=== PATIENT | female | born 1950 | race Caucasian/White ===

== ENCOUNTER 2018-05-11 19:59 | Observation (INO) | payer OTHER ==
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
--- NOTE | 2018-05-11 20:18 | CPEKG ---
Heart Rate: 62 RR Interval: 968 P-R Interval: 180 QRSD Interval: 94 QT Interval: 420 QTC Interval: 427 P York: 65 QRS York: 47 T Wave York: 62 EKG Severity - NORMAL ECG - EKG Impression: SINUS RHYTHM Electronically Signed By: Manish Pittman 16-May-2018 16:38:28
[2018-05-11 20:23] LABS: PLATELET COUNT 317 10^3/uL (150-400)
[2018-05-11] MEDS ORDERED: IOPAMIDOL (ISOVUE 370) 100 ML BTL IV ONE (21:07)
[2018-05-11] MEDS ORDERED: NS 1,000 ML IV ONE (21:44)
[2018-05-11] MEDS ORDERED: ACETAMINOPHEN 325 MG TAB PO PRN (22:55)
[2018-05-11] MEDS ORDERED: HYDROCODONE/APAP 5/325 TAB PO PRN (22:55)
[2018-05-11] MEDS ORDERED: ONDANSETRON 4 MG/2 ML VIAL IVP PRN (22:55)
[2018-05-11] MEDS ORDERED: NS 1,000 ML IV SCH (23:00)
--- NOTE | 2018-05-12 01:58 | PDGENHP ---
History and Physical - Chief Complaint Chest pain, syncope - History of Present Illness Source-patient provides history is a reliable historian. Some of the history is obtained from review of EMR as patient did have some syncopal episodes as and does not recall these events. Case was discussed with accepting hospitalist provider. HPI-this is a very pleasant 67-year-old female who is otherwise healthy presents emergency department today with complaints of on a new onset of chest pain earlier in the day. Patient reports that she developed lot left-sided sharp stabbing intermittent chest pain that was worsened with sitting up and exertion. She had also noted some associated shortness of breath with exertion over the last several weeks since she has arrived [place] the [place] Patient is a resident in [place] and has been traveling for the last several weeks. She was in [place] on just 2 days ago and came to [place] to visit with friends. Today patient reports that she developed a left-sided chest pain she also noted that she had associated numbness and tingling down to her left arm to her fingers. She denies any weakness. Did developed some associated nausea but no vomiting. She denies any diaphoresis. Dyspnea on exertion as noted above. Patient is also noting that since she arrived to the [place] That she has developed some congestion and postnasal drainage. She also reports that when she lays down to sleep she feels like she is choking on drainage but has never had symptoms similar to this until arriving to the [place] This afternoon patient apparently had several episodes of syncope witnessed by her friends. When she went to sit up she subsequently lost consciousness for few seconds. She had multiple episodes similar to this. She denies any lower extremity edema, orthopnea or PND. Overall patient reports that she is very active and has never had any exertional chest pain or similar step symptoms previously. Patient states that she has been eating and drinking to stay well hydrated while she is here in [place]. She denies any fevers or chills. She reports development of a headache today on frontal and right-sided. She denies any associated changes in vision or ocular pain. No other focal deficits reported. No family history of coronary artery disease. History Information - Allergies/Home Medication List Allergies/Adverse Reactions: No Known Allergies Allergy (Verified 05/11/18 22:19) Home Medications: NK [No Known Home Meds] 05/11/18 [Last Taken Unknown] I have personally reviewed and updated: family history, medical history, social history, surgical history - Past Medical History no pertinent PMH Additional medical history: 2016 - closed-head injury with hospitalization. - Surgical History Additional surgical history: Appendectomy - Family History Additional family history: Negative for CAD. - Social History Smoking Status: Never smoked Alcohol Use: None Drug Use: None Additional social history: Patient is visiting from [place]. Cor status-full. Review of Systems Review of Systems: ROS: 10pt was reviewed & negative except for what was stated in HPI & below Constitutional: Reports: no symptoms. Denies: chills, fever EENMT: Reports: no symptoms. Denies: blurred vision, double vision, nose congestion, sore throat Cardiac: Reports: chest pain, lightheadedness, syncope. Denies: edema, palpitations Gastrointestinal: Reports: nausea. Denies: vomitting, diarrhea Genitourinary: Reports: no symptoms Muscolosketal: Reports: no symptoms Skin: Reports: no symptoms Neurological: Reports: headache, numbness (Left arm). Denies: tingling Hematologic/Lymphatic: Reports: no symptoms Physical Exam Physical Exam: Selected Entries 05/11/18 05/11/18 20:01 21:43 Blood Pressure Automatic Method Heart Rate 72 Heart Rate [ 61 Sitting] Heart Rate [ 67 Standing] Heart Rate [ 68 Supine] Respiratory 16 Rate O2 Sat (%) 96 Temperature (C) 36.4 C Blood Pressure 144/82 H Blood Pressure 122/69 H [Sitting] Blood Pressure 114/70 [Standing] Blood Pressure 115/71 [Supine] Mean Arterial 102 H Pressure (MAP) O2 Delivery Room Air Mode Blood Pressure Right Source [Sitting Arm ] Heart Rate/ Monitor Blood Pressure Right Source [ Arm Standing] Heart Rate/ Monitor Blood Pressure Right Source [Supine] Arm Heart Rate/ Monitor Temperature Oral Source Heart Rate Automatic Source [Sitting ] Heart Rate Heart Rate/ Source [ Monitor Standing] Heart Rate Heart Rate/ Source [Supine] Monitor Temp Pulse Resp BP Pulse Ox 36.6 C 71 16 131/55 H 97 05/11/18 22:50 05/11/18 22:50 05/11/18 22:50 05/11/18 22:50 05/11/18 22:50 Constitutional: no apparent distress, not in pain, other (NAD. Pleasant adult female is sitting up on the edge of the bed. She is in good spirits.) Eyes: PERRL, anicteric sclera, EOMI, No scleral injection Ears, Nose, Mouth, Throat: moist mucous membranes, no oral mucosal ulcers, other (No nasal discharge) Cardiovascular: regular rate and rhythym, no murmur, rub, or gallop, pulses symmetric bilaterally, No edema Peripheral Pulses: 2+: dorsalis-pedis (R), dorsalis-pedis (L) Respiratory: no respiratory distress, no rales or rhonchi, clear to auscultation , No inspiratory crackles, No respiratory distress Gastrointestinal: normoactive bowel sounds, soft, non-tender abdomen, no palpable masses, No distension Genitourinary: no bladder fullness, no bladder tenderness, No garcia in urethra Skin: warm, normal color, no rashes or abrasions Musculoskeletal: full muscle strength, normal joint ROM, No generalized weakness Neurologic: AAOx3, sensation intact bilaterally, CN II-XII Intact, other ( Nonfocal exam), No facial droop Psychiatric: interacting appropriately, not anxious, not encephalopathic, thought process linear Lymph, Heme, Immunologic: no cervical LAD, other (Patient with enlargement of the thyroid right greater than left lobes. Nodularity.) Lab Data & Imaging Review 05/11/18 20:00 05/11/18 20:00 WBC 8.77 10^3/uL (3.80-9.50) 05/11/18 20:00 RBC 4.65 10^6/uL (4.18-5.33) 05/11/18 20:00 Hgb 14.2 g/dL (12.6-16.3) 05/11/18 20:00 POC Hgb 14.6 gm/dL (12.6-16.3) 05/11/18 20:18 Hct 42.2 % (38.0-47.0) 05/11/18 20:00 POC Hct 43 % (38-47) 05/11/18 20:18 MCV 90.8 fL (81.5-99.8) 05/11/18 20:00 MCH 30.5 pg (27.9-34.1) 05/11/18 20:00 MCHC 33.6 g/dL (32.4-36.7) 05/11/18 20:00 RDW 13.3 % (11.5-15.2) 05/11/18 20:00 Plt Count 317 10^3/uL (150-400) 05/11/18 20:00 MPV 11.2 fL (8.7-11.7) 05/11/18 20:00 Neut % (Auto) 53.5 % (39.3-74.2) 05/11/18 20:00 Lymph % (Auto) 31.7 % (15.0-45.0) 05/11/18 20:00 [place] % (Auto) 9.5 % (4.5-13.0) 05/11/18 20:00 Eos % (Auto) 3.9 % (0.6-7.6) 05/11/18 20:00 Baso % (Auto) 1.1 % (0.3-1.7) 05/11/18 20:00 Nucleat RBC Rel Count 0.0 % (0.0-0.2) 05/11/18 20:00 Absolute Neuts (auto) 4.69 10^3/uL (1.70-6.50) 05/11/18 20:00 Absolute Lymphs (auto) 2.78 10^3/uL (1.00-3.00) 05/11/18 20:00 Absolute Monos (auto) 0.83 10^3/uL (0.30-0.80) H 05/11/18 20:00 Absolute Eos (auto) 0.34 10^3/uL (0.03-0.40) 05/11/18 20:00 Absolute Basos (auto) 0.10 10^3/uL (0.02-0.10) 05/11/18 20:00 Absolute Nucleated RBC 0.00 10^3/uL (0-0.01) 05/11/18 20:00 Immature Gran % 0.3 % (0.0-1.1) 05/11/18 20:00 Immature Gran # 0.03 10^3/uL (0.00-0.10) 05/11/18 20:00 D-Dimer 0.42 ug/mLFEU (0.00-0.50) 05/11/18 20:00 POC Sodium 142 mEq/L (135-145) 07/07/18 20:18 Sodium 139 mEq/L (135-145) 05/11/18 20:00 POC Potassium 3.8 mEq/L (3.3-5.0) 05/11/18 20:18 Potassium 4.1 mEq/L (3.3-5.0) 05/11/18 20:00 POC Chloride 104 mEq/L (97-110) 05/11/18 20:18 Chloride 104 mEq/L (97-110) 05/11/18 20:00 Carbon Dioxide 26 mEq/l (22-31) 05/11/18 20:00 Anion Gap 9 mEq/L (8-16) 05/11/18 20:00 POC BUN 16 mg/dL (7-23) 05/11/18 20:18 BUN 16 mg/dL (7-23) 05/11/18 20:00 Creatinine 0.8 mg/dL (0.6-1.0) 05/11/18 20:00 POC Creatinine 0.9 mg/dL (0.6-1.0) 05/11/18 20:18 Estimated GFR > 60 05/11/18 20:00 Glucose 81 mg/dL (70-100) 05/11/18 20:00 POC Glucose 86 mg/dL (70-100) 05/11/18 20:18 Calcium 9.7 mg/dL (8.5-10.4) 05/11/18 20:00 Total Bilirubin 0.3 mg/dL (0.1-1.4) 05/11/18 20:00 Conjugated Bilirubin 0.2 mg/dL (0.0-0.5) 05/11/18 20:00 Unconjugated Bilirubin 0.1 mg/dL (0.0-1.1) 05/11/18 20:00 AST 30 IU/L (14-46) 05/11/18 20:00 ALT 26 IU/L (9-52) 05/11/18 20:00 Alkaline Phosphatase 79 IU/L (38-126) 05/11/18 20:00 POC Troponin I 0.01 ng/mL (0.00-0.08) 05/11/18 20:14 Total Protein 7.2 g/dL (6.3-8.2) 05/11/18 20:00 Albumin 4.2 g/dL (3.5-5.0) 05/11/18 20:00 Lipase 232 IU/L (23-300) 05/11/18 20:00 Imaging Review: PA and Lateral Chest History: Chest pain. Findings: The heart and mediastinum are normal. Pulmonary vascularity is normal. The lungs are clear. Mild peribronchial thickening is seen and there is also slight hyperexpansion. There is no pleural fluid. A pneumothorax is not identified. Impression: Findings most consistent with airways disease are noted. CT Head Without Intravenous Contrast Reason for examination: Neurologic symptoms; possible cva. Technique: Axial images are obtained at 5 mm intervals and reformatted at 1.25 mm thickness. The examination is reviewed on the workstation at multiple window/level settings. Sagittal and coronal reformations are performed. Dose reduction techniques were utilized. Findings: No masses, areas of hemorrhage, or extraaxial fluid collections are identified. There are no secondary findings to suggest acute cortical ischemia. Ventricles and midline structures are normal in position and configuration for a patient of this age. The cerebellopontine angles appear normal. The craniovertebral junction is normal. Mild mucous membrane thickening is seen involving the maxillary sinuses bilaterally. No air-fluid levels are seen in the sinuses. The mastoids are normally aerated. Impression: No evidence for hemorrhage or cortical ischemia. A preliminary report was called to the Emergency Department. CT Pulmonary Angiogram Clinical Indications: Substernal chest pain, shortness of breath and syncopal episodes; evaluate for PE. Technique: Thinly collimated multidetector helical CT imaging was performed through the chest while [90] mL of Isovue-370 were injected intravenously without complication. The images were obtained at 4 mm thickness and reconstructed at 1.5 mm thickness. Sagittal and coronal reconstructions were performed. The examination is reviewed on the workstation by the interpreting physician at multiple window/level settings. Dose reduction techniques were utilized. Findings: Chest: The lungs are clear. Heart size is normal. No pericardial or pleural effusions are seen. Hilar and mediastinal contours are normal. There are no masses or noncalcified pulmonary nodules. There is prominent heterogeneous enhancement and attenuation of the thyroid. There is extension of the left lobe of the thyroid into the upper mediastinum and the appearance is consistent with a multinodular goiter. Beam hardening artifact from the vascular contrast diminishes thyroid evaluation. The upper abdomen is negative for acute abnormality on this arterial phase study. CT Pulmonary Angiogram: The pulmonary arterial system is well opacified. No intraluminal filling defects are seen to suggest acute or chronic pulmonary embolic disease. No vascular malformations are seen. The thoracic aorta has a normal contour without evidence of aneurysm or dissection. Impression: 1. No evidence of pulmonary embolic disease. 2. Thyroid enlargement consistent with a goiter. Ultrasound could be considered for further evaluation. 3. See above report for additional findings. Results called to the emergency Department on 05/11/2018 at 22:18. EKG additional interpertation: NSR in the 60s. No acute ST changes. QTC 427. Assessment & Plan Assessment: 67-year-old female with no significant history presents emergency department today with complaints of 1 day left-sided chest pain, lightheadedness, syncope. Chest pain (Acute) - Ddx including angina vs. Musculoskeletal vs. pleurisy vs ruled out PE or dissection. Patient's initial EKG and troponin are negative. Her HEART score is low risk at 2. Patient would want to consider follow up with her primary care provider after she has returned back to [facility] she has always been healthy and without symptoms previously. Patient is agreeable to repeat a.m. Troponin for rule out and will further discuss with a.m. Provider regarding consideration for stress testing. Currently patient reports that she has no symptoms whatsoever and she feels really well. She is concerned about discharge as soon as possible. Dyspnea (Acute) - patient with some peribronchiolar thickening and also reporting to postnasal drainage this could be related to some allergic rhinitis and/or reactive airway. Patient without any previous history of dyspnea on exertion she has no other clinical signs of CHF. Given the correlation with her chest pain will obtain echocardiogram in the morning. CTA was negative for any evidence of pneumonia, effusions or thromboembolism. She has not had any hypoxic events recorded. She will be monitor on pulse ox at this time. Consider use of antihistamines after evaluation of syncope for her allergic rhinitis and postnasal drainage. Syncope (Acute) - consideration for orthostasis vs vasovagal vs a arrhythmia and less likely other neurologic insult. Patient's orthostatic blood pressures were within normal limits in the emergency department. She has been noted to be in normal sinus rhythm since her arrival. She has however received a L of IV fluid which will continue overnight. Patient not had a noted hypoxic events. Echocardiogram ordered for a.m. As noted above. FEN - IV fluid supplementation overnight. Electrolyte monitoring replacement if needed. Cardiac diet as tolerated NPO after midnight should stress testing be indicated. PPX-SCDs. Lovenox if patient should stay additional day. Cor status full Disposition-patient admitted observation status on PCU for close cardiac monitoring pending further evaluation the morning.
[2018-05-12 07:59] VITALS: BP 102/46
--- NOTE | 2018-05-12 08:22 | HOSPPROG ---
Hospitalist Progress Note Assessment/Plan: 67 yo F w cp and syncope neg eval see dc summary Subjective: quite anxious for dc. no events tele (interp by me) Objective: Vital Signs Temp Pulse Resp BP Pulse Ox 36.8 C 69 18 102/46 L 94 05/12/18 07:58 05/12/18 07:58 05/12/18 07:58 05/12/18 07:58 05/12/18 07:58 05/11/18 05/12/18 05/13/18 05:59 05:59 05:59 Intake Total 1544 Balance 1544 - Physical Exam Constitutional: no apparent distress, appears nourished Eyes: PERRL, anicteric sclera Ears, Nose, Mouth, Throat: moist mucous membranes, hearing normal Cardiovascular: regular rate and rhythym, no murmur, rub, or gallop, No systolic murmur Respiratory: no respiratory distress, no rales or rhonchi Gastrointestinal: normoactive bowel sounds, soft, non-tender abdomen Genitourinary: no bladder fullness, No garcia in urethra Skin: warm, normal color Musculoskeletal: full muscle strength ICD10 Worksheet Patient Problems: Problems Problem Status Onset Chest pain Acute Dyspnea Acute Syncope Acute
--- NOTE | 2018-05-12 08:32 | ASDISCHSUM ---
Discharge Information Plan Status:Home with No Needs Medically Cleared to Leave:05/12/2018 Discharge Date:05/12/2018 CM D/C Disposition:Home, Routine, Self-Care ADT D/C Disposition: Projected Discharge Date:05/12/2018 Transportation at D/C:Family Discharge Delay Reason: Follow-Up Date:05/12/2018 Discharge Slot: Final Diagnosis: Placement Information Patient Contact Information Contact Name:STORMY Relationship: Address:[address] [place] [address] Work Phone: City:[place] Alternate Phone: State/Zip Code:[place] [address] Email: Financial Information Financial Class:O and PPO Plans Primary Plan Desc:RYAN PPO POS HMO SIG ADM Primary Plan Number:[id number] Secondary Plan Desc: Secondary Plan Number: Assessment Information LACE LACE Length of stay for Answers: Less than 1 day current admission Acuity / Level of Answers: No Care: Did the patient have an inpatient admission? Comorbidities - select Answers: Other Notes: closed head injury 2016 all that apply # of Emergency department Answers: 1-2 visits in the last 6 months Score: 2 Date Signed: 05/12/2018 08:31 AM Electronically Signed By:Trang Saunders RN Intervention Information
--- NOTE | 2018-05-12 08:45 | GDS ---
[f rep st] DISCHARGE SUMMARY DISCHARGE DIAGNOSES: 1. Chest pain of uncertain etiology. 2. Possible syncope. HOSPITAL COURSE: Please see admission history and physical by Dr. Candice Jaimes. The patient present ed with malaise and chest pain. Workup is notable for negative troponin. She had a nonischemic EKG with no evidence of prior infarct. She had no events on telemetry. She had a CTA that showed no cynthia dence of pulmonary embolic disease. She had an incidentally noted goiter. There was no evidence of major vessel issue. She had a normal noncontrast head CT. Notably, she had normal thyroid function tests. She had positive orthostatic vital signs. She had i mproved symptoms after a couple liters of IV fluids. The patient was discharged home. Discussion wa luca had about inpatient stress versus discharge and she prioritized early discharge over stress test. She was advised to follow up with her primary care physician regarding her thyroid goiter and to get a stress test in the next month. Importantly, it was stressed that if she has recurrent symptoms of chest pain, she should present to an emergency department, stay for an inpatient stress test. /[id number]/MODL
[2018-05-12] MEDS ORDERED: ENOXAPARIN 40 MG/0.4 ML SYR SC SCH (09:00)
== END 2018-05-12 09:43 | disposition home or self-care (01) ==
LOC: F2W 22:42
PROVIDERS: ADMIT Internal Medicine; ATTEND Internal Medicine
DX: R07.9 Chest pain, unspecified (principal); R55 Syncope and collapse
CPT/HCPCS: 82435-PO; 82565-PO; 82947-PO; 84132-PO; 84295-PO; 84484-PO; 84520-PO; 85014-PO; G0378; Q9967